=== PATIENT | female | born 1935 | race Caucasian/White ===

== ENCOUNTER → 2016-09-23 | Outpatient (CLI) | payer MEDICARE, BC ==
--- NOTE | ~2016-09-23 | ENPV ---
Carotid Duplex Study Demographics Patient Name YUE BARRERA Date of Study 09/23/2016 Patient Number [id number] Gender Female Date of 1935 Age 81 Visit Number [id number] Height 66 Weight 115 Number Referring Larry Cole Interpreting Tyree Cain MD Physician A MD Physician Physician Ordering Larry Cole Edge Glue Machine Tender Physician A Radio Television Technical Director Jonathan Amaro BS, RT Conclusions Summary The right internal carotid artery has mild, 1-39%, plaque and stenosis. The right vertebral artery is present with antegrade flow. The left internal carotid artery has moderate, 40-59%, plaque and stenosis. (Tortuous mid to distal left ICA) The left vertebral artery is present with antegrade flow. Procedure Type of Study: Cerebral:Carotid, Carotid Doppler Bilateral. Indications for Study:Syncope. Patient Status:Routine. Study Location:Vascular Lab. Technical Quality:Adequate visualization. Velocities are measured in cm/s ; Diameters are measured in cm Carotid Right Measurements Carotid Left Measurements + +--------+--------+ + + + +--------+ --------+ + + !Location !PSV !EDV !Angle !%Stenosis ! !Location !PSV ! EDV !Angle !%Stenosis ! + +--------+--------+ + + + +--------+ --------+ + + !Prox CCA !78 !15 !60 ! ! !Prox CCA !72 ! 18 !60 ! ! + +--------+--------+ + + + +--------+ --------+ + + !Dist CCA !64 !16 !60 ! ! !Dist CCA !65 ! 17 !60 ! ! + +--------+--------+ + + + +--------+ --------+ + + !Prox ICA !82 !30 !60 ! ! !Prox ICA !55 ! 17 !60 ! ! + +--------+--------+ + + + +--------+ --------+ + + !Dist ICA !64 !16 !38 ! ! !Dist ICA !136 ! 35 !60 ! ! + +--------+--------+ + + + +--------+ --------+ + + !Prox ECA !118 ! !60 ! ! !Prox ECA !101 ! !60 ! ! + +--------+--------+ + + + +--------+ --------+ + + !Vertebral !62 ! !60 ! ! !Vertebral !51 ! !60 ! ! + +--------+--------+ + + + +--------+ --------+ + + !Subclavian !115 ! !60 ! ! !Subclavian !133 ! !60 ! ! + +--------+--------+ + + + +--------+ --------+ + + - There is antegrade vertebral flow noted on the right side. - There is antegrade verte bral flow noted on the left side. - Add'l Measurements:ICAPSV/CCAPSV 1.05.ICAEDV/CCAEDV 2.01. - Add'l Measurements:ICAPS V/CCAPSV 1.9.ICAEDV/CCAEDV 1.91. Signature dtt: BI SANFORD dtd: 09/23/16 1400 Physician Self Edit
--- NOTE | ~2016-09-23 | ECHO ---
Transthoracic Echocardiography Report (TTE) Demographics Patient Name YUE BARRERA Date of Study 09/23/2016 Patient Number [id number] Visit Number [id number] Date of 1935 Room Number Gender Female Number Age 81 year(s) Referring Larry Cole Marble Carver Mahesh Dimas MD Physician Interpreting Sonal Miller MD Jig Borer Physician Supervising Ordering Larry Ortiz MD/MLAbrahan Physician Kelsey Dimas MD Nurse Stress Corporate Counselor Conclusions Contractility Score Summary Normal Left Ventricular contractility was noted. Summary The estimated left ventricular ejection fraction is 60-65%. Mild concentric left ventricular hypertrophy. Device lead seen in the right atrium. Mild mitral annular calcification. Mild mitral regurgitation by color Doppler. Mild tricuspid regurgitation by color Doppler. There is mild pulmonary hypertension. The pulmonary pressure (RVSP) is 42 mmHg. Procedure Type of Study TTE procedure:2D Echocardiogram. Procedure Date Date: 09/23/2016 Start: 02:25 PM Study Location: Echo Lab Technical Quality: Adequate visualization Indications:Syncope. Appropriate Use Criteria: 9 Patient Status: Routine HR: 75 bpm BP: 161/74 mmHg M-Mode/2D Measurements LV Diastolic Dimension: 3.16 cm LV Systolic Dimension: 1.69 cm LV Septum Diastolic: 1.45 cm LV PW Diastolic: 1.37 cm AO Root Dimension: 2.4 cm Cardiac Output: 4.97 l/min AV Cusp Separation: 1.4 cm RV Diastolic Dimension: 2.19 cm LVOT: 1.9 cm LVOT VTI: 23.4 cm RV Base: 2.07 cm LV Stroke volume: 66.31 ml RV Length: 4.8 cm TAPSE: 2.15 cm TDI-S': 13.3 cm/s Doppler Measurements AV Peak Velocity: 1.44 m/s MV Peak E-Wave: 0.85 m/s AV Peak Gradient: 8.29 mmHg MV Peak A-Wave: 1.13 m/s AV Mean Gradient: 4 mmHg MV E/A Ratio: 0.75 LVOT Peak Velocity: 1.03 m/s MV P1/2t: 60 msec TR Gradient:31.81 mmHg PV Peak Velocity: 0.72 m/s Estimated RAP:10 mmHg PV Peak Gradient: 2.08 mmHg Estimated RVSP: 42 mmHg Estimated PASP: 41.81 mmHg E' Septal Velocity: 0.05 m/s A' Septal Velocity: 0.11 m/s E' Lateral Velocity: 0.07 m/s A' Lateral Velocity: 0.13 m/s Findings Left Ventricle Mild concentric left ventricular hypertrophy. Diastolic assessment reveals Grade I diastolic dysfunction. Right Ventricle Normal right ventricle structure and function. Device lead noted in the right ventricle. Left Atrium Normal left atrial size. Right Atrium IVC measures 1.23 cm with inspiratory collapse. Device lead seen in the right atrium. Mitral Valve Mild mitral annular calcification. Mild mitral regurgitation by color Doppler. Aortic Valve Normal aortic valve structure and function. Tricuspid Valve Mild tricuspid regurgitation by color Doppler. There is mild pulmonary hypertension. The pulmonary pressure (RVSP) is 42 mmHg. Pulmonic Valve Normal pulmonic valve structure and function. Pericardial Effusion No evidence of pericardial effusion. Miscellaneous Visualized portions of the aortic root and ascending aorta appear normal in size. Pleural Effusion No evidence of pleural effusion. Contractility Score LV regional wall motion:(0-Non visualized 1-Normal 2-Hypokinesis 3-Akinesis 4-Dyskinesis 5-Aneurysm) Signature dtt: Paul Pruitt (cardio) dtd: 09/23/16 1425 Physician Self Edit
== END | disposition disaster alternative care site (69) ==
LOC: GCAR 13:55
DX: R42 Dizziness and giddiness (principal); I65.23 Occlusion and stenosis of bilateral carotid arteries